=== PATIENT | female | born 1975 | race African-American/Black ===

== ENCOUNTER 2019-01-25 07:26 | Inpatient (IN) | payer BC, OTHER ==
[~2019-01-25] VITALS: Ht 167.6 cm; Wt 99.8 kg
[~2019-01-25 07:26] MED LIST: IBUPROFEN 600600 M1; LANOLIN56 GM; PERCOCET 5-3251 EACH; SENNA; SIMETHICON CHEW80 M1
[2019-01-25 07:32] VITALS: BP 141/85
[2019-01-25 08:08] LABS: HEMOGLOBIN 9.8 gm/dL (12.0-15.0)
[2019-01-25 08:10] LABS: HEMATOCRIT 31.2 % (37.0-47.0); MCH 23.2 pg (26.0-34.0); MCHC 31.3 g/dL (28.0-37.0); MCV 74.4 fL (80.0-100.0); WBC 4.7 thou/uL (4.0-11.0)
[2019-01-25 08:24] LABS: CALCIUM 9.1 mg/dL (8.5-10.1); CREATININE 0.7 mg/dL (0.6-1.0)
[2019-01-25 08:30] LABS: ALBUMIN 3.4 g/dL (3.4-5.0); DIRECT BILIRUBIN 0.1 mg/dL (<0.1-0.2); TOTAL BILIRUBIN 0.8 mg/dL (<0.1-1.0); TOTAL PROTEIN 8.3 g/dL (6.4-8.2)
[2019-01-25 09:17] LABS: ABSOLUTE NEUTROPHILS 2.9 thou/uL (1.4-8.2)
[2019-01-25 09:18] LABS: ANISOCYTOSIS 1+; OVALOCYTES 1+
[2019-01-25 09:19] LABS: POLYCHROMASIA OCCASIONAL
[2019-01-25 09:21] LABS: ATYPICAL LYMPHS 3 %
[2019-01-25 09:24] LABS: APTT 28.4 Seconds (24.5-32.8); PROTIME 10.1 Seconds (9.3-11.4)
[2019-01-25 09:30] LABS: PLATELET COUNT 13 thou/uL (150-400)
[2019-01-25 11:19] LABS: % SATURATION 8 % (20-39); IRON 24 ug/dL (50-170); TIBC 317 ug/dL (250-450)
[2019-01-25 11:47] LABS: ABSOLUTE RETIC COUNT 0.0385 10^6/uL; OBSERVED RETIC COUNT 1.04 % (0.6-2.6)
[2019-01-25 13:39] VITALS: BP 149/88
[2019-01-25 13:54] VITALS: BP 142/83
[2019-01-25 15:00] VITALS: BP 150/95
[2019-01-25 19:14] VITALS: BP 131/87
--- NOTE | 2019-01-25 20:14 | NUR ---
Received pt from the ER, alert and oriented x4. IV located on her left jugular patent witn no fluids ordered. Seen by Dr. Pichardo requesting for lab works recently done by primary physician. POC followed, no signs and verbalizations of distress noted, pain was mentioned from the hiop but did noit require medication on the onset. E$ndorsed o the night nurse.
--- NOTE | 2019-01-26 03:59 | NUR ---
progress pt progressing.vss, reported pain in right hip, requested ibuprofen but tylenol ordered and given with effect. , no ivf's or medications ordered pt sleeping on all rounds tylenol given early in shift pt slept on and off. up with sba to br gait steady am labs ordered. continue to monitor.
[2019-01-26 06:03] LABS: HEMATOCRIT 27.9 % (37.0-47.0); HEMOGLOBIN 8.8 gm/dL (12.0-15.0); MCHC 31.4 g/dL (28.0-37.0); RBC 3.73 mil/uL (4.20-5.00); RDW 15.7 % (10.5-14.5); WBC 2.1 thou/uL (4.0-11.0)
[2019-01-26 06:05] LABS: MCH 23.6 pg (26.0-34.0)
[2019-01-26 06:15] LABS: PLATELET COUNT 14 thou/uL (150-400)
[2019-01-26 08:00] VITALS: BP 153/79
[2019-01-26 08:07] LABS: HEMOGLOBIN 8.6 g/dL (11.1-15.9)
[2019-01-26 08:55] LABS: ABSOLUTE NEUTROPHILS 1.1 thou/uL (1.4-8.2); ANISOCYTOSIS 1+; LARGE PLATELETS FEW; MICROCYTES 1+; PLATELET ESTIMATE MARKEDLY DECREASED
[2019-01-26 14:09] LABS: ANTI-DNA SCREEN 17 IU/mL (0-9); ANTI-RNP >8.0 AI (0.0-0.9)
--- NOTE | 2019-01-26 14:57 | NUR ---
PT ADMITTED RELATED TO THROMBOCYTOPENIA. CM REVIEWED CHART AND SPOKE WITH CARE TEAM. CM MET WITH PT AT BEDSIDE THIS DAY. PT IS A&O X4. CM ROLE INTRODUCED. PT INDICATED THAT SHE LIVES IN A HOUSE WITH HER YOUNG DTR WITH 3 STEPS TO ENTER AND 8 STEPS INSIDE. 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 PT INDICATED NO DME OR HH HX. PT INDICATED SHE PLANS TO DISCHARGE HOME ONCE MEDICALLY STABLE. CM TO FOLLOW INDICATED WITH DC PLANNING.
--- NOTE | 2019-01-26 18:15 | NUR ---
Assumed pt care at 0700.Pt up adlib in the room and hallways independently. Assessment completed.vss.Dr Jordan here,order noted.Consult called to Dr Pichardo and order received.He said he will see pt later this evening. Pt reported bleeding gum when brushing teeth.Softer brush encouraged.Pt has good appetite and plt was better today but still low.Will continue to monitor.
[2019-01-26 20:45] VITALS: BP 139/85
[2019-01-27 05:47] LABS: HEMATOCRIT 27.6 % (37.0-47.0); HEMOGLOBIN 8.6 gm/dL (12.0-15.0); MCHC 31.1 g/dL (28.0-37.0); WBC 2.7 thou/uL (4.0-11.0)
[2019-01-27 05:53] LABS: ABSOLUTE RETIC COUNT 0.0397 10^6/uL; MCH 23.4 pg (26.0-34.0); MCV 75.1 fL (80.0-100.0); OBSERVED RETIC COUNT 1.08 % (0.6-2.6); RBC 3.68 mil/uL (4.20-5.00); RDW 15.6 % (10.5-14.5)
[2019-01-27 06:08] LABS: PLATELET COUNT 15 thou/uL (150-400)
--- NOTE | 2019-01-27 07:20 | NUR ---
progress pt up ad andrew denies pain vss, has adequate po food and fluid intake, voiding qs platelets 15 today Tania Sepulveda notified no new orders pt hopes to discharge home and to continue having work up by rheumatology as an out pt. continue to monitor for bleeding continue poc.
[2019-01-27 08:35] VITALS: BP 121/69
[2019-01-27 09:50] LABS: LARGE PLATELETS MANY; PLATELET ESTIMATE MARKEDLY DECREASED
[2019-01-27 09:51] LABS: ANISOCYTOSIS 1+; MICROCYTES 2+
[2019-01-27 11:07] LABS: GLOBULIN TOTAL 3.5 g/dL (2.2-3.9); M-SPIKE Not Observed g/dL (Not Observed)
[2019-01-27 16:10] VITALS: BP 130/82
--- NOTE | 2019-01-27 16:25 | NUR ---
CARE TEAM INDICATED THAT PT MAY HAVE NEW LUPUS DX AND THAT THEY CONSULTED DR. JAMESON. ANTICIPATE POSSIBLE DC HOME TOMORROW. CM TO FOLLOW INDICATED WITH DC PLANNING.
--- NOTE | 2019-01-27 17:13 | NUR ---
PT ALERT AND ORIENTED TIMES FOUR. VSS, 100%RA, PT DENIES PAIN/SOA. PT UP AB ZAHIDA WITH STEADY GAIT. PT TOLERATES MEDS AND MEALS. WILL CONTINUE TO MONITOR.
[2019-01-27 19:09] VITALS: BP 130/86
[2019-01-28 06:05] LABS: WBC 2.6 thou/uL (4.0-11.0)
[2019-01-28 06:06] LABS: HEMATOCRIT 29.1 % (37.0-47.0); MCH 23.3 pg (26.0-34.0); RBC 3.88 mil/uL (4.20-5.00); RDW 15.9 % (10.5-14.5)
--- NOTE | 2019-01-28 08:19 | NUR ---
PROGRESS PT A/O X4 LUNGS CLEAR, ABDOMEN SOFT WITH POSITIVE BS, SKIN WARM DRY INTACT WITH NO AREAS OF BREAKDOWN NOTED. UP AD ZAHIDA TOLERATING DIET WITH ADEQUATE FLUID INTAKE. PLAN IS TO SEE AND POSSIBLE STEROID INFUSION FOR A FEW DAYS. NO BLEEDING NOTED,CONTINUE TO MONITOR
--- NOTE | 2019-01-28 10:17 | NUR ---
Chela Shahid office to follow up POC based on the notes place by Jacqueline Bright. Gave call back number.
--- NOTE | 2019-01-28 15:24 | NUR ---
PT WAS SEEN BY DR. JAMESON AND WAS STARTED ON MEDICATION. IT IS ANTIPATED THAT PT WILL BE MEDICALLY STABLE TO DISCHARGE OVER THE WEEKEND. PT WILL LIKELY HAVE NO NEEDS UPON DC. CM ABLE TO ASSIST SHOULD ANY NEEDS ARISE.
[2019-01-28 19:35] VITALS: BP 133/64
--- NOTE | 2019-01-29 01:26 | NUR ---
ASSUMED CARE OF PT AT 1900HRS. PT IS AOX4 AND LETS NEEDS BE KNOWN. PT IS UP AD ZAHIDA. PT DENIED PAIN OR NAUSEA. STEROID TREATMENT CONTINUED. PT WAS ABLE TO GET COMFRTABLE AND SLEEP PART OF THE SHIFT. VSS AND NO S/S OF ACUTE DISTRESS. WILL CONTINUE TO MONITOR.
[2019-01-29 04:54] LABS: HEMOGLOBIN 9.1 gm/dL (12.0-15.0); MCH 23.3 pg (26.0-34.0); MCHC 31.4 g/dL (28.0-37.0); MCV 74.3 fL (80.0-100.0); RBC 3.91 mil/uL (4.20-5.00); WBC 2.2 thou/uL (4.0-11.0)
[2019-01-29 08:20] VITALS: BP 118/80
--- NOTE | 2019-01-29 10:20 | NUR ---
Assumed pt care this am, platelet count is at 7, informed Dr. Kleber dr mentioned this is expected for the initial correction of the decadron, pt is expected to stay over the weekend and anticipating platelet count to increase prior to dc. Informed the pt regarding the plan.
[2019-01-29 14:24] VITALS: BP 141/82
[2019-01-29 19:12] VITALS: BP 139/75
--- NOTE | 2019-01-30 04:39 | NUR ---
ASSUMED CARE AROUND 1930. AXOX4. CALLS APPROPIRATELY FOR ASSIST. PER 'S ORDER. PT NOW FALL RISK. PT IS COMPLIANT WITH FALL PRECAUTIONS AND VERBALIZES UNDERSTANDING FOR INITIATION OF PRECAUTION. DENIES ANY PAIN AT THIS TIME. NO S/S ACUTE DISTRESS NOTED OR REPORTED AT THIS TIME. WILL CONT TO MONITOR FOR ANY CHANGES IN CONDITION.
[2019-01-30 05:18] LABS: BASOPHILS 0.1 % (0.0-2.0); HEMATOCRIT 29.8 % (37.0-47.0); HEMOGLOBIN 9.2 gm/dL (12.0-15.0); LYMPHOCYTES 4.5 % (24.0-44.0); MCH 23.2 pg (26.0-34.0); MCHC 30.9 g/dL (28.0-37.0); MCV 74.9 fL (80.0-100.0); MONOCYTES 4.1 % (1.0-8.0); POLYS 91.3 % (36.0-66.0); RBC 3.98 mil/uL (4.20-5.00)
[2019-01-30 06:33] LABS: PLATELET COUNT 61 thou/uL (150-400); WBC 13.1 thou/uL (4.0-11.0)
[2019-01-30 06:35] LABS: MICROCYTES 1+
[2019-01-30 06:36] LABS: LARGE PLATELETS FEW; PLATELET ESTIMATE DECREASED
[2019-01-30 06:37] LABS: OVALOCYTES 2+
[2019-01-30 08:00] VITALS: BP 143/70
[2019-01-30 15:00] VITALS: BP 142/81
[2019-01-30 19:20] VITALS: BP 126/69
--- NOTE | 2019-01-30 19:55 | NUR ---
Assumed pt care this am, pt still on fall risk precautions though platelet count is now 61. No signs or verbalizations of distress have been noted. POC followed, pt is compliant with the plan of care and progressing well. Endorsed to the night nurse. Pt would have most of her meal brought in by her family but states she eats coz she has to but not really a big appetite.
--- NOTE | 2019-01-31 04:47 | NUR ---
ASSUMED CARE AROUND 191. AXOX4. NO S/S ACUTE DISTRESS NOTED OR REPORTED AT THIS TIME. WILL CONT TO MONITOR FOR ANY CHANGES IN CONDITION.
[2019-01-31 08:42] VITALS: BP 119/66
[2019-01-31 09:11] LABS: HEMOGLOBIN 9.8 gm/dL (12.0-15.0); MCH 22.9 pg (26.0-34.0); MCHC 30.6 g/dL (28.0-37.0); RBC 4.27 mil/uL (4.20-5.00); RDW 15.9 % (10.5-14.5); WBC 12.4 thou/uL (4.0-11.0)
--- NOTE | 2019-01-31 13:10 | NUR ---
CARE TEAM INDICATED THAT PT IS MEDICALLY STABLE TO DISCHARGE HOME THIS DAY TO SELF CARE. NO OTHER CM INTERVENTION INDICATED. CASE CLOSED.
[2019-01-31 15:30] VITALS: BP 140/85
--- NOTE | 2019-01-31 16:50 | NUR ---
ASSUMED CARE AT 0715 AM, ALERT AND ORIENTED X4. DENEIS ANY DISTRESS. ASSESMENT DOCUMENTED AND WILL CONTINUE WITH POC.
[2019-01-31 19:54] VITALS: BP 121/71
--- NOTE | 2019-02-01 05:06 | NUR ---
Assessments completed. no concerns overnight. pt stable and looking forward to going home today. will cont to monitor
[2019-02-01] MEDS ORDERED: PREDNISONE 10 M10 MG PO (08:26)
[2019-02-01 08:27] VITALS: BP 121/71
[2019-02-01 08:45] LABS: HEMATOCRIT 33.3 % (37.0-47.0); HEMOGLOBIN 10.3 gm/dL (12.0-15.0); MCH 23.2 pg (26.0-34.0); MCHC 30.9 g/dL (28.0-37.0); MCV 75.1 fL (80.0-100.0); RBC 4.44 mil/uL (4.20-5.00); RDW 16.3 % (10.5-14.5); WBC 10.3 thou/uL (4.0-11.0)
[2019-02-01 08:47] VITALS: BP 116/78
[2019-02-01] MEDS ORDERED: TYLENOL325 MG PO (09:09)
--- NOTE | 2019-02-01 09:30 | NUR ---
Assumed pt care at 7am.Pt in bed very excited about going home today. Assessment completed.vss.Dr Sotelo paged about pt dc. Received rteurn call from Kate Dean np.She came to see pt prior to dc home.Dr Shahid here,order noted.Lab drawn and report faxed to Dr Shahid .Dc summary compile and reviewed with pt .Rick alarcon dc'd.Pt dc home at 0930 per wc with family.
== END 2019-02-01 09:30 | disposition home or self-care (01) | DRG 813 ==
LOC: ER 07:26 → 4W 11:37 → EROBS 11:37 → 4W 14:00 → ENTRNSPT 02-01 09:10 → EDTRNSPTSTS 02-01 09:13 → 4W 02-01 09:30
PROVIDERS: Emergency Medicine; Internal Medicine; Internal Medicine Hematology & Oncology; Internal Medicine Rheumatology; Nurse Practitioner; ADMIT Hospitalist
DX: D69.3 Immune thrombocytopenic purpura (principal); D64.9 Anemia, unspecified; M32.9 Systemic lupus erythematosus, unspecified; M35.9 Systemic involvement of connective tissue, unspecified; Z90.49 Acquired absence of other specified parts of digestive tract; Z88.2 Allergy status to sulfonamides; Z80.3 Family history of malignant neoplasm of breast; Z80.41 Family history of malignant neoplasm of ovary; Z82.61 Family history of arthritis; Z82.49 Family history of ischemic heart disease and other diseases of the circulatory system
CPT/HCPCS: 10040

== ENCOUNTER → 2020-02-03 | Outpatient (CLI) | payer BC, OTHER ==
[~2020-02-03] MED LIST changes: +PREDNISONE 10 M10 MG PO; +TYLENOL325 MG PO
== END ==
LOC: ULTRA 12:50
PROVIDERS: ATTEND Nurse Practitioner
DX: N92.0 Excessive and frequent menstruation with regular cycle (principal); D69.1 Qualitative platelet defects